=== PATIENT | male | born 1985 | race Caucasian/White ===

== ENCOUNTER 2018-09-05 13:22 | Emergency (ER) | payer BC, OTHER ==
[~2018-09-05] VITALS: Ht 177.8 cm; Wt 86.8 kg
[2018-09-05 13:29] VITALS: BP 134/91; PULSE 117; RESP 20; Ht 177.8 cm; Wt 86.8 kg
[2018-09-05] MEDS ORDERED: PSEU-79 PO (14:59)
[2018-09-05] MEDS ORDERED: BENZ-6 PO (14:59)
[2018-09-05] MEDS ORDERED: PROM6.2515 PO (14:59)
--- NOTE | 2018-09-05 15:09 | ERD ---
ER Documentation Chief Complaint Chief Complaint cough/sore throat/headache/bodyache/runny nose/generalized malaise x1day HPI 33-year-old male presenting with body aches sore throat cough and runny nose times 1 day. Patient has not taken medication today. No sick contacts. Denies medical problems. NKDA. Surgical history hemorrhoidectomy. Social history denies ROS All systems reviewed and are negative except as per history of present illness. Medications Home Meds Active Scripts Pseudoephedrine Hcl* (Suphedrin*) 30 Mg Tablet, 30 MG PO Q6 PRN for CONGESTION, #30 TAB Prov:LILIANA NGUYEN PA-C 09/05/18 Benzonatate* (Tessalon Perle*) 100 Mg Capsule, 100 MG PO Q8H PRN for COUGH, #30 CAP Prov:LILIANA NGUYEN PA-C 09/05/18 Promethazine Hcl* (Promethazine Hcl* Syrup) 6.25 Mg/5 Ml Syrup, 6.25 MG PO Q6H PRN for COUGH, #100 ML Prov:LILIANA NGUYEN PA-C 09/05/18 PMhx/Soc History of Surgery: No Anesthesia Reaction: No Hx Neurological Disorder: No Hx Respiratory Disorders: No Hx Cardiac Disorders: No Hx Psychiatric Problems: No Hx Miscellaneous Medical Probl: No Hx Alcohol Use: No Hx Substance Use: No Hx Tobacco Use: No Smoking Status: Never smoker FmHx Family History: No diabetes, No coronary disease, No other Physical Exam Vitals Vital Signs Date Temp Pulse Resp B/P (MAP) Pulse Ox O2 O2 Flow FiO2 Time Delivery Rate 09/05/18 100.1 117 20 134/91 97 13:29 (105) Physical Exam GENERAL: The patient is well-appearing, well-nourished, in no acute distress HEENT: Atraumatic. Conjunctivae are pink. Pupils equal, round, and reactive to light. There is no scleral icterus. Tympanic membranes clear bilaterally. Oropharynx clear. NECK: C-spine is soft and supple. There is no meningismus. There is no cervical lymphadenopathy. CHEST: Clear to auscultation bilaterally. There are no rales, wheezes or rhonchi. HEART: Regular rate and rhythm. No murmurs, clicks, rubs or gallops. Procedures/MDM MDM: 33-year-old male presenting with flulike symptoms. I have low suspicion for pneumonia. I have low suspicion for meningitis or sepsis. Patient is discharged with strict ER precautions and told to follow-up with primary care within 1-2 days for close evaluation. Patient is told if symptoms change or worsen to return immediately to ER. Patient is discharged with supportive medications. All questions answered at discharge Departure Diagnosis: Primary Impression: Upper respiratory infection Condition: Stable Patient Instructions: Cough, Chronic, Uncertain Cause, (Adult), Uri, Viral, No Abx (Adult) Referrals: [facility] YOU HAVE RECEIVED A MEDICAL SCREENING EXAM AND THE RESULTS INDICATE THAT YOU DO NOT HAVE A CONDITION THAT REQUIRES URGENT TREATMENT IN THE EMERGENCY DEPARTMENT. FURTHER EVALUATION AND TREATMENT OF YOUR CONDITION CAN WAIT UNTIL YOU ARE SEEN IN YOUR DOCTORS OFFICE WITHIN THE NEXT 1-2 DAYS. IT IS YOUR RESPONSIBILITY TO MAKE AN APPOINTMENT FOR FOLOW-UP CARE. IF YOU HAVE A PRIMARY DOCTOR --you should call your primary doctor and schedule an appointment IF YOU DO NOT HAVE A PRIMARY DOCTOR YOU CAN CALL OUR PHYSICIAN REFERRAL HOTLINE AT IF YOU CAN NOT AFFORD TO SEE A PHYSICIAN YOU CAN CHOSE FROM THE FOLLOWING [facility] [address] [facility] [place] [facility] [address] [facility] [facility] [address] [facility] [facility] [address] [facility] [address] [facility]. [facility]. [address] Additional Instructions: FOLLOW UP WITH YOUR PRIMARY CARE PHYSICIAN TOMORROW.Return to this facility if you are not improving as expected. LILIANA NGUYEN PA-C Sep 05, 2018 15:09
[2018-09-05] MEDS ORDERED: AZIT250T PO (15:14)
== END 2018-09-05 16:00 | disposition home or self-care (01) ==
LOC: FTE 13:22
DX: J06.9 Acute upper respiratory infection, unspecified (principal)
CPT/HCPCS: 99283

== ENCOUNTER 2018-11-23 20:26 | Emergency (ER) | payer BC ==
[~2018-11-23] VITALS: Ht 177.8 cm; Wt 86.0 kg
[~2018-11-23 20:26] MED LIST: AZIT250T PO; BENZ-6 PO; PROM6.2515 PO; PSEU-79 PO
[2018-11-23 20:30] VITALS: Ht 177.8 cm; Wt 86.0 kg
[2018-11-23] MEDS ORDERED: DIPHENHYDRAMINE 25 MG CAP PO ONE (21:30)
[2018-11-23] MEDS ORDERED: CEPHALEXIN 500 MG CAP PO ONE (21:30)
[2018-11-23] MEDS ORDERED: TRIMETHOPRIM/SULFAMETHOX (DS) TAB PO ONE (21:30)
--- NOTE | 2018-11-23 21:35 | ERD ---
ER Documentation Chief Complaint Chief Complaint L HAND SWELLING S/P BUG BITE YESTERDAY HPI 33-year-old male with no significant past medical history presents to the emergency department with complaints of worsening redness and swelling of the left hand which began yesterday due to an insect bite. He reports associated pruritus. He tried otpe-esw-[id number] cream without significant relief. He reports associated pain which he rates 8/10 in severity. He denies any lymphatic streaking, wrist pain, fevers, chills, or other symptoms at this time. No other symptoms reported currently. ROS All systems reviewed and are negative except as per history of present illness. Medications Home Meds Active Scripts Azithromycin* (Zithromax*) 250 Mg Tablet, 250 MG PO .ZPACK DIRECTED, #6 TAB TAKE 500 MG (2 TABS) THE FIRST DAY THEN 250 MG (1 TAB) DAYS 2-5 Prov:LILIANA NGUYEN PA-C 09/05/18 Pseudoephedrine Hcl* (Suphedrin*) 30 Mg Tablet, 30 MG PO Q6 PRN for CONGESTION, #30 TAB Prov:LILIANA NGUYEN PA-C 09/05/18 Benzonatate* (Tessalon Perle*) 100 Mg Capsule, 100 MG PO Q8H PRN for COUGH, #30 CAP Prov:LILIANA NGUYEN PA-C 09/05/18 Promethazine Hcl* (Promethazine Hcl* Syrup) 6.25 Mg/5 Ml Syrup, 6.25 MG PO Q6H PRN for COUGH, #100 ML Prov:LILIANA NGUYEN PA-C 09/05/18 Allergies Allergies: Coded Allergies: No Known Allergy (Unverified , 11/23/18) PMhx/Soc Medical and Surgical Hx: pt denies Medical Hx, pt denies Surgical Hx History of Surgery: No Anesthesia Reaction: No Hx Neurological Disorder: No Hx Respiratory Disorders: No Hx Cardiac Disorders: No Hx Psychiatric Problems: No Hx Miscellaneous Medical Probl: No Hx Alcohol Use: No Hx Substance Use: No Hx Tobacco Use: No Smoking Status: Never smoker FmHx Family History: No diabetes Physical Exam Vitals Vital Signs Date Temp Pulse Resp B/P (MAP) Pulse Ox O2 O2 Flow FiO2 Time Delivery Rate 6/30/19 99.8 98 16 119/71 95 20:30 (87) Physical Exam Const: No acute distress Head: Atraumatic Eyes: Normal Conjunctiva ENT: Normal External Ears, Nose and Mouth. Neck: Full range of motion. No meningismus. Resp: Clear to auscultation bilaterally Cardio: Regular rate and rhythm, no murmurs Skin: No petechiae or rashes Ext: Examination of the left hand reveals erythema and edema. Range of motion of the left wrist and fingers of the left hand is fully intact. Patient is neurovascularly intact to the left upper extremity. 2+ radial pulses noted. There is no crepitus on palpation of the left hand. Neur: Awake and alert Psych: Normal Mood and Affect Results 24 hrs Current Medications Medications Dose Sig/Marii Start Time Status Last (Trade) Ordered Route PRN Stop Time Admin Dose Reason Admin 25 mg ONCE ONCE 11/23/18 Diphenhydrami PO 21:30 ne HCl 11/23/18 21:31 (Benadryl) Cephalexin 500 mg ONCE ONCE 11/23/18 (Keflex) PO 21:30 11/23/18 21:31 1 tab ONCE ONCE 11/23/18 Trimethoprim/ PO 21:30 11/23/18 21:31 Sulfamethoxaz ole (Bactrim (Ds)) Procedures/MDM 33-year-old male presents to the emergency department with signs and symptoms most consistent with cellulitis of the left hand secondary to insect bite. Patient is administered Keflex, Bactrim, Benadryl in the department and he was stable and appropriate for discharge and further outpatient management with prescriptions for Benadryl, Keflex, Bactrim at home. There is no evidence of necrotizing fasciitis. I doubt sepsis, ascending cellulitis or deep space infection. Patient will be discharged with explicit instructions to return to the department immediately for any new or worsening symptoms. He is given follow-up information for the [facility]. I shared my medical decision making with the patient and he understands and agrees with the plan. Departure Diagnosis: Primary Impression: Insect bite Additional Impression: Cellulitis Condition: Fair Patient Instructions: Cellulitis, Insect Bites and Stings Referrals: [facility] Additional Instructions: Follow up with your PCP within the next 1-3 days for a repeat evaluation. If you require a referral to a specialist, your Primary Care Provider may be able to provide this for you. In most patient cases, a referral is not required. If you have further questions regarding this matter, please ask your Primary Care Provider. Return the the emergency department immediately if symptoms worsen or change. If you have any questions regarding medications, ask your pharmacist or us before you leave. If any adverse reactions, occur while taking your medications, discontinue the treatment and return to the emergency department immediately. If any new or worsening symptoms, uncontrolled fevers, or other unexplained symptoms occur, return to the emergency department immediately. Take your medications as directed, and complete the entire course of treatment. PARVEZ QUIGLEY PA-C Nov 23, 2018 21:35
[2018-11-23] MEDS ORDERED: SULF1TAB31 PO (21:47)
[2018-11-23] MEDS ORDERED: CEPH-443 PO (21:47)
[2018-11-23] MEDS ORDERED: BEN25 PO (21:47)
[2018-11-23 22:30] VITALS: BP 121/68; PULSE 89; RESP 16
== END 2018-11-23 22:30 | disposition home or self-care (01) ==
LOC: FTE 20:26
DX: S60.562A Insect bite (nonvenomous) of left hand, initial encounter (principal); L03.114 Cellulitis of left upper limb; W57.XXXA Bitten or stung by nonvenomous insect and other nonvenomous arthropods, initial encounter; Y92.9 Unspecified place or not applicable
CPT/HCPCS: 99283